=== PATIENT | female | born 1980 | race Caucasian/White ===

== ENCOUNTER 2016-11-07 16:51 | Emergency (ER) | payer BC ==
[~2016-11-07] VITALS: Ht 154.9 cm; Wt 79.7 kg
[2016-11-07 17:15] VITALS: Ht 154.9 cm; Wt 79.7 kg
[2016-11-07] MEDS ORDERED: SODIUM CHLORIDE 0.9% 1000ML 1,000 ML IV STA (17:47)
[2016-11-07] MEDS ORDERED: KETOROLAC TROMETHAMINE 30 MG/ML VIAL IV STA (17:47)
[2016-11-07] MEDS ORDERED: HYDROmorphone INJ 1 MG/ML SYR IV STA (17:47)
[2016-11-07] MEDS ORDERED: METOCLOPRAMIDE HCL INJ 5 MG/ML 2 ML VIAL IV STA (17:47)
--- NOTE | 2016-11-07 17:50 | EMERGENCY ROOM VISIT NOTE ---
History Report prepared by Esther: Sukhjinder Garrett Under the Supervision of: Dr. Arjun Cullen M.D. First contact with patient: 17:41 Chief Complaint: ABDOMINAL PAIN Stated Complaint: SEVERE ABD PAIN Nursing Triage Summary: Patient ambulatory to triage, hunched over, states "I have really bad abdominal pain. I thought it was gas pain but it's not. I have burped and passed gas but the pain will not ease up. The pain started around 1530." Patient reports pain is in the lower medial abdomen/pelvis. No vaginal discharge or bleeding. Patient denies any nausea or vomiting, constipation or diarrhea. History of Present Illness The patient is a 36 year old female who presents to the Emergency Room with complaints of upper left quadrant abdominal pain that began 4 hours ago. She rates her pain an 8/10 in severity. Her pain is currently better than when it started, but it is still present. She denies any back pain, vomiting, or diarrhea. She is currently nauseated. She has no prior surgeries. She is currently on antibiotics prescribed by her dentist for a tooth condition. She has a past medical history of asthma. She is currently taking control, but does not know if she is or not because of the antibiotics. Source of History: patient Onset: 4 hours ago Position: abdomen (LUQ) Symptom Intensity: 8/10 Quality: pressure Timing: constant Associated Symptoms: + nausea, No vomiting, No back pain, No diarrhea Review of Systems See HPI for pertinent positives & negatives. A total of 10 systems reviewed and were otherwise negative. Past Medical & Surgical Medical Problems: (1) Asthma Family History Patient reports no known family medical history. Social History Smoking Status: Never Smoker Smokeless Tobacco Use: No Drug Use: none Marital Status: Housing Status: lives with family Occupation Status: employed Current/Historical Medications Scheduled Control Pills ( Control Pills), 1 TAB PO DAILY Cetirizine Hcl (Zyrtec), 10 MG PO DAILY Montelukast Sodium (Singulair), 10 MG PO HS Multivit/Min/Iron/Fol Ac/Pren ( Vitamin), 1 TAB PO DAILY Phentermine Hcl (Adipex P), 37.5 MG PO QAM Scheduled PRN Albuterol Sulfate (Proair Respiclick), 2 PUFFS INH UD PRN for SOB/Wheezing Allergies Coded Allergies: Latex (Verified Allergy, Mild, Skin irritation, 8/28/17) Physical Exam Vital Signs Date Time Temp Pulse Resp B/P (MAP) Pulse Ox O2 Delivery O2 Flow Rate FiO2 11/07/16 19:41 75 20 121/82 100 Room Air 11/07/16 19:35 36.7 73 18 121/82 100 11/07/16 19:19 73 11/07/16 17:15 36.7 76 18 121/82 100 Room Air Physical Exam GENERAL: Patient is a healthy-appearing well-nourished female HEAD: Normocephalic atraumatic EYES: Ocular movements intact pupils equal and react to light OROPHARYNX mucous membranes are moist no exudates present no erythema or edema present NECK: Supple no nuchal rigidity CHEST: Good equal expansion LUNGS: Clear and equal to auscultation CARDIAC: Normal S1 and S2 ABDOMEN: Soft tenderness to palpation in the left upper quadrant no guarding BACK: No CVA tenderness EXTREMITIES: No pain upon palpation normal muscle strength in all groups no clubbing cyanosis or edema NEURO: Patient is following commands and answering questions appropriately. Alert and oriented x3 Cranial Nerves 2-12 grossly intact Medical Decision & Procedures Laboratory Results 11/07/16 18:28 Red Blood Count 4.39, Mean Corpuscular Volume 87.2, Mean Corpuscular Hemoglobin 30.1, Mean Corpuscular Hemoglobin Concent 34.5, Mean Platelet Volume 9.8, Neutrophils (%) (Auto) 64.4, Lymphocytes (%) (Auto) 28.4, Monocytes (%) (Auto) 6.0, Eosinophils (%) (Auto) 0.7, Basophils (%) (Auto) 0.4, Neutrophils # (Auto) 4.65, Lymphocytes # (Auto) 2.05, Monocytes # (Auto) 0.43, Eosinophils # (Auto) 0.05, Basophils # (Auto) 0.03 11/07/16 18:28 Test 11/07/16 18:25 11/07/16 18:28 11/07/16 18:40 Urine Color YELLOW Urine Appearance CLEAR (CLEAR) Urine pH 5.5 (4.5-7.5) Urine Specific [place] 1.014 (1.000-1.030) Urine Protein NEG (NEG) Urine Glucose (UA) NEG (NEG) Urine Ketones NEG (NEG) Urine Occult Blood NEG (NEG) Urine Nitrite NEG (NEG) Urine Bilirubin NEG (NEG) Urine Urobilinogen NEG (NEG) Urine Leukocyte Esterase NEG (NEG) Urine Test NEG (NEG) White Blood Count 7.22 K/uL (4.8-10.8) Red Blood Count 4.39 M/uL (4.2-5.4) Hemoglobin 13.2 g/dL (12.0-16.0) Hematocrit 38.3 % (37-47) Mean Corpuscular Volume 87.2 fL (80-100) Mean Corpuscular Hemoglobin 30.1 pg (25-34) Mean Corpuscular Hemoglobin Concent 34.5 g/dl (32-36) Platelet Count 238 K/uL (130-400) Mean Platelet Volume 9.8 fL (7.4-10.4) Neutrophils (%) (Auto) 64.4 % Lymphocytes (%) (Auto) 28.4 % Monocytes (%) (Auto) 6.0 % Eosinophils (%) (Auto) 0.7 % Basophils (%) (Auto) 0.4 % Neutrophils # (Auto) 4.65 K/uL (1.4-6.5) Lymphocytes # (Auto) 2.05 K/uL (1.2-3.4) Monocytes # (Auto) 0.43 K/uL (0.11-0.59) Eosinophils # (Auto) 0.05 K/uL (0-0.5) Basophils # (Auto) 0.03 K/uL (0-0.2) RDW Standard Deviation 42.8 fL (36.4-46.3) RDW Coefficient of Variation 13.2 % (11.5-14.5) Immature Granulocyte % (Auto) 0.1 % Immature Granulocyte # (Auto) 0.01 K/uL (0.00-0.02) Est Creatinine Clear Calc Drug Dose 91.1 ml/min Estimated GFR () 108.4 Estimated GFR (Non- 93.5 BUN/Creatinine Ratio 13.6 (10-20) Calcium Level 9.2 mg/dl (8.5-10.1) Total Bilirubin 0.3 mg/dl (0.2-1) Direct Bilirubin < 0.1 mg/dl (0-0.2) Aspartate Amino Transf (AST/SGOT) 13 U/L (15-37) Alanine Aminotransferase (ALT/SGPT) 19 U/L (12-78) Alkaline Phosphatase 48 U/L (45-117) Total Protein 7.1 gm/dl (6.4-8.2) Albumin 3.7 gm/dl (3.4-5.0) Lipase 189 U/L (73-393) Bedside Hemoglobin 13.6 g/dl (12.0-16.0) Bedside Hematocrit 40 % (37-47) Bedside Sodium 139 mEq/L (135-144) Bedside Potassium 3.9 mEq/L (3.3-5.0) Bedside Chloride 104 mEq/L (101-112) Bedside Total CO2 25 mEq/l (24-31) Anion Gap 15.0 mmol/L (16-25) Bedside Blood Urea Nitrogen 11 mg/dl (7-18) Bedside Creatinine 0.7 mg/dl (0.6-1.3) Bedside Glucose (other) 84 mg/dl (70-99) Bedside Ionized Calcium (Lis) 1.19 mmol/l (1.12-1.32) Labs reviewed by ED physician. Medications Administered Medications (Trade) Dose Ordered Sig/Blake Route Start Time Stop Time Status Last Admin Dose Admin Sodium Chloride 1,000 ml @ 999 mls/hr Q1H1M STAT IV 11/07/16 17:47 11/07/16 18:47 DC 11/07/16 18:20 999 MLS/HR Metoclopramide HCl (Reglan Inj) 10 mg NOW STAT IV 11/07/16 17:47 11/07/16 17:50 DC 11/07/16 18:21 10 MG Ketorolac Tromethamine (Toradol Inj) 30 mg NOW STAT IV 11/07/16 17:47 11/07/16 17:50 DC 11/07/16 18:21 30 MG Hydromorphone HCl (Dilaudid Inj) 1 mg NOW STAT IV 11/07/16 17:47 11/07/16 17:50 DC 11/07/16 18:21 1 MG ED Course 174: Past medical records reviewed. The patient was evaluated in room C8. A complete history and physical examination was performed. 1746: Ordered Dilaudid Inj 1 mg IV, Toradol Inj 30 mg IV, Reglan Inj 10 mg IV, Sodium Chloride 1000 ml @ 999 mls/hr IV 1900: Upon reexamination the patient is resting. I discussed results and treatment plan with the patient. She verbalizes agreement and understanding. The patient is ready for discharge. Medical Decision Differential diagnosis: Etiologies such as appendicitis, diverticulitis, PUD, biliary pathology, UTI, pancreatitis, obstruction, mesenteric ischemia, aortic pathology, infections, inflammatory bowel disease, renal colic, as well as others were entertained. This is a 36-year-old female who presents emergency department complaining of diffuse abdominal pain. Serial abdominal examinations were performed on the patient in the emergency department and at no time did the patient exhibit a surgical abdomen or abdominal tenderness. In addition the patient has a normal CBC with no elevation in her white blood count cell count. She is not . She has a normal renal profile normal liver profile normal lipase. In addition the patient began feeling better in the emergency department after serial normal saline bolus Toradol and Dilaudid. Using shared medical decision- making the patient did not wish to receive a CAT scan as she has normal laboratory work and is now pain-free. I believe that this is reasonable however I stressed the need to return if she develops fevers or severe abdominal pain. Patient was in agreement with the treatment plan. Medication Reconcilliation Current Medication List: was personally reviewed by me Blood Pressure Screening Patient's blood pressure: Normal blood pressure Blood pressure disposition: Did not require urgent referral Impression Primary Impression: Abdominal pain Scribe Attestation The scribe's documentation has been prepared under my direction and personally reviewed by me in its entirety. I confirm that the note above accurately reflects all work, treatment, procedures, and medical decision making performed by me. Departure Information Dispostion Home / Self-Care Referrals TRACY ORDOÑEZ M.D. (PCP) Forms Call Back Authorization, HOME CARE DOCUMENTATION FORM, IMPORTANT VISIT INFORMATION, School Instructions, Work Instructions Patient Instructions Diet Clear Liquid Dc, ED Abdominal Pain Unkn Cause, My [facility] Additional Instructions Take 10 oz bottle of miralax; Add to 16 oz of gatorade Drink continuously until moving creamy stools Clear liquid diet for next 48 hours Return if you develop fevers or pain worsens You received narcotic or benzodiazepene medication while in the emergency room today. This is an addictive medication that may cause drowziness as well as constipation. Do not drive, operate heavy machinery, or drink alcohol under the influence of this medication. You have been examined and treated today on an emergency basis only. This is not a substitute for, or an effort to provide, complete comprehensive medical care. It is impossible to recognize and treat all injuries or illnesses in a single emergency department visit. It is therefore important that you follow up closely with Dr Ordoñez. Call as soon as possible for an appointment. Thank you for your time and consideration. I look forward to speaking with you again soon. Please don't hesitate to call us if you have any questions. Problem Qualifiers Primary Impression: Abdominal pain Abdominal location: left upper quadrant Qualified Codes: R10.12 - Left upper quadrant pain
[2016-11-07] MEDS ORDERED: OPTIRAY 320 IV PRN (18:00)
[2016-11-07] MEDS ORDERED: CETI10TA10 PO (18:49)
[2016-11-07] MEDS ORDERED: MONT1TAB3 PO (18:49)
[2016-11-07] MEDS ORDERED: BCPILLS PO (18:49)
[2016-11-07] MEDS ORDERED: PHEN37.585 PO (18:49)
[2016-11-07] MEDS ORDERED: ALBU18002 INH (18:49)
[2016-11-07] MEDS ORDERED: PRENTAB26 PO (18:49)
[2016-11-07 18:51] LABS: BASO % 0.4 %; BASO ABS # 0.03 K/uL (0-0.2); COMPLETE YES; EOS % 0.7 %; HEMATOCRIT 38.3 % (37-47); IG% 0.1 %; LYMPH % 28.4 %; LYMPH ABS # 2.05 K/uL (1.2-3.4); MEAN CELL VOLUME 87.2 fL (80-100); MEAN CORPUSCULAR HEMOGLOBIN 30.1 pg (25-34); MEAN CORPUSCULAR HGB CONC 34.5 g/dl (32-36); MEAN PLATELET VOLUME 9.8 fL (7.4-10.4); NEUT % 64.4 %; PLATELET COUNT 238 K/uL (130-400); RED BLOOD COUNT 4.39 M/uL (4.2-5.4); WHITE BLOOD COUNT 7.22 K/uL (4.8-10.8)
[2016-11-07 18:51] LABS: ISTAT CREATININE 0.7 mg/dl (0.6-1.3); ISTAT HEMOGLOBIN 13.6 g/dl (12.0-16.0); ISTAT IONIZED CALCIUM 1.19 mmol/l (1.12-1.32)
[2016-11-07 18:52] LABS: URINE APPEARANCE CLEAR (CLEAR); URINE BILIRUBIN NEG (NEG); URINE COLOR YELLOW; URINE NITRITE NEG (NEG); URINE PH 5.5 (4.5-7.5); URINE SPECIFIC GRAVITY 1.014 (1.000-1.030); UROBILINOGEN NEG (NEG); ZZUR CULT IF INDIC CLEAN CATCH NO
[2016-11-07 19:06] LABS: MANUAL MICROSCOPIC REQUIRED? NO; REVIEW REQ? NO
[2016-11-07 19:19] LABS: ALT/SGPT 19 U/L (12-78); AST/SGOT 13 U/L (15-37); BLOOD UREA NITROGEN 11 mg/dl (7-18); BUN/CREATININE RATIO 13.6 (10-20); CALCIUM 9.2 mg/dl (8.5-10.1); CARBON DIOXIDE 28 mmol/L (21-32); CHLORIDE 107 mmol/L (98-107); GLUCOSE 82 mg/dl (70-99); POTASSIUM 3.9 mmol/L (3.5-5.1); SODIUM 138 mmol/L (136-145)
[2016-11-07 19:21] LABS: ALKALINE PHOSPHATASE 48 U/L (45-117)
[2016-11-07 19:35] VITALS: TEMP 36.7
[2016-11-07 19:41] VITALS: BP 121/82; PULSE 75; O2SAT 100
== END 2016-11-07 19:39 | disposition home or self-care (01) ==
LOC: C.EDB 16:54 → C.EDC 19:39
DX: R10.12 Left upper quadrant pain (principal); J45.909 Unspecified asthma, uncomplicated